=== PATIENT | male | born 1965 | race Caucasian/White ===

== ENCOUNTER → 2019-10-19 | Outpatient (CLI) | payer BC ==
[~2019-10-19] MED LIST: ABILIFY 2 MG2 M1 PO; DILTIAZEM 24HR240 M1 PO; HYDROCHLOROTHIA25 M1 PO; LEXAPRO 10 MG T10 M1 PO; LIPITOR40 MG PO; LISINOPRIL40 MG PO; MELOXICAM15 MG PO; MEN'S DAILY FO1 EAC1 PO; PREVACID30 MG PO; VALTREX 500 MG500 M1 PO
== END ==
LOC: SJCVCIMAG 15:25
DX: Z01.810 Encounter for preprocedural cardiovascular examination (principal); I08.8 Other rheumatic multiple valve diseases; I11.9 Hypertensive heart disease without heart failure; I44.7 Left bundle-branch block, unspecified; R94.31 Abnormal electrocardiogram [ECG] [EKG]; E78.00 Pure hypercholesterolemia, unspecified; Z79.899 Other long term (current) drug therapy; Z82.49 Family history of ischemic heart disease and other diseases of the circulatory system

== ENCOUNTER → 2019-10-22 | Outpatient (CLI) | payer BC | LOC: SJCVCIMAG 12:49 | DX: Z01.810 Encounter for preprocedural cardiovascular examination (principal); I45.10 Unspecified right bundle-branch block; I10 Essential (primary) hypertension; E78.5 Hyperlipidemia, unspecified; E66.9 Obesity, unspecified; Z79.899 Other long term (current) drug therapy ==

== ENCOUNTER 2019-10-24 10:16 | Day surgery (SDC) | payer BC ==
[2019-10-19 14:07] LABS: HEMOGLOBIN 15.3 gm/dL (14.0-18.0); MCH 31.7 pg (26.0-34.0); MCHC 34.7 g/dL (28.0-37.0); MCV 91.3 fL (80.0-100.0); RBC 4.82 mil/uL (4.50-6.00); RDW 13.5 % (10.5-14.5); URINE BILIRUBIN NEGATIVE (Negative); URINE BLOOD NEGATIVE (Negative); URINE CLARITY CLEAR; URINE GLUCOSE-RANDOM* NEGATIVE (Negative); URINE KETONES NEGATIVE (Negative); URINE LEUKOCYTES-REFLEX NEGATIVE (Negative); URINE NITRITE-REFLEX NEGATIVE (Negative); URINE PROTEIN (DIPSTICK) NEGATIVE (Negative); URINE UROBILINOGEN 0.2 E.U./dl (0.2-1.0); WBC 7.2 thou/uL (4.0-11.0)
--- NOTE | 2019-10-19 14:07 | EKG ---
[facility] [place] [address] ELECTROCARDIOGRAM REPORT Name: CRYSTAL WILSON Room #: PRE [facility] M..#: [id number] Admission: Attend Phys: Lb Sands MD Discharge: Date of : 63 Report #: [id number] THIS REPORT FOR: cc: Physician not on staff Physician not on staff Wade Muñiz MD ~ THIS REPORT FOR: //name// [facility] Test Date: 2019-10-19 Test Time: 14:00:38 Pat Name: CRYSTAL WILSON Department: Room: Gender: M Lpn Rn: CARMEN LUCAS : 1965 Requested By: Lb Sands Order Number: [id number] MD: Wade Muñiz Measurements Intervals Biggers Rate: 59 P: 12 VA: 222 QRS: -72 QRSD: 125 T: -5 QT: 417 QTc: 414 Interpretive Statements Sinus rhythm Prolonged VA interval Left bundle branch block No previous ECG available for comparison Electronically Signed On 10-19-2019 14:05:20 CDT by Wade Muñiz [email or web address] <ELECTRONICALLY SIGNED> By: Wade Muñiz MD 10/19/19 1405 1400 1400 Wade Muñiz MD /OLENA
[2019-10-19 14:09] LABS: URINE COLOR YELLOW
[2019-10-19 14:14] LABS: ALBUMIN 4.2 g/dL (3.4-5.0); CALCIUM 8.8 mg/dL (8.5-10.1)
[2019-10-19 14:18] LABS: PROTIME 10.2 Seconds (9.3-11.4)
[~2019-10-24] VITALS: Ht 188 cm; Wt 149.7 kg
[2019-10-24 11:27] VITALS: BP 137/74
[2019-10-24 18:45] VITALS: BP 129/69
[2019-10-24 19:30] VITALS: BP 160/90
[2019-10-25 04:08] VITALS: BP 133/75
[2019-10-25 06:01] LABS: HEMOGLOBIN 13.7 gm/dL (14.0-18.0); MCH 31.8 pg (26.0-34.0); MCHC 34.3 g/dL (28.0-37.0); MCV 92.6 fL (80.0-100.0); RBC 4.32 mil/uL (4.50-6.00); RDW 13.4 % (10.5-14.5); WBC 13.8 thou/uL (4.0-11.0)
--- NOTE | 2019-10-25 06:02 | NUR ---
RECIEVED CARE OF THIS PATIENT AT 1900. PATIENT ALERT AND ORIENTED X4. HAS NERISSA DRESSING ON L KNEE WITH CALDERON WRAPPED. HAS POLAR ICE ON WELL. HAS MARTÍN'S AND SCD'S. C/O PAIN AT A 2. SCHEDULED PAIN MED GIVEN. HAS GOOD FEELING AND MOVEMENT IN TOES. IV PATENT WITH FLUIDS INFUSING. SLEPT OFF AND ON DURING NIGHT.
[2019-10-25 07:20] VITALS: BP 128/63
--- NOTE | 2019-10-25 09:55 | NUR ---
ASSESSMENT: CM REVIEWED CHART AND SPOKE WITH PATIENT. PT IS S/P KNEE REPLACEMENT. PT REPORTS HE LIVES IN A HOUSE ALONE BUT STATES HE WILL HAVE HELP THERE FOR ABOUT A WEEK. PT REPORTS HAVING 2 STEPS TO ENTER THE HOME WITH NO HANDRAILS AND ABOUT 15 STEPS WITH HANDRAILS TO THE UPPER LEVEL. PT REPORTS FOR THE FIRST WEEK HE PLANS ON STAYING ON THE FIRST FLOOR. PHYSCIAL THERAPY SAW PATIENT AND RECOMMENDING A BARIATRIC WALKER. CM SPOKE WITH PT AND HE HAS NO PREFERENCE OF [employer]. CM NOTIFIED GABE AT [employer] AND SHE IS CHECKING INSURANCE. PT REPORTS THAT AN OUTPATIENT THERAPY CALLED HIM ALREADY HE JUST NEEDS TO CALL THEM BACK TO SCHEDULE THE APPT. PT REPORTS NO FURTHER NEEDS FROM CM.
[2019-10-25 13:07] VITALS: BP 128/63
--- NOTE | 2019-10-25 19:31 | NUR ---
VSS-AFEBRILE. OOB WITH PHYSICAL THERAPY, TOLERATED WELL, AND PT OK WITH DC. DISCUSSED ALL DISCHARGE INFORMATION, VERBALIZED UNDERSTANDING OF ALL DISCUSSED MATERIALS. LEFT UNIT IN WHEELCHAIR WITH ALL PERSONAL BELONGINGS. TRANSPORTED HOME IN PRIVATE VEHICLE WITH SIGNIFICANT OTHER.
--- NOTE | 2019-10-26 11:20 | O ---
[facility] [place] [place] [address] OPERATIVE REPORT Name: CRYSTAL WILSON Room #: DEP [facility] M.R.#: [id number] Admission: 10/24/19 Attend Phys: Lb Sands MD Discharge: 10/25/19 Date of : 63 Report #: [id number] THIS REPORT FOR: cc: Physician not on staff Physician not on staff Lb Sands MD ~ CC: BERNARD RORDIGUEZ Physician staff Lb Sands DATE OF SERVICE: 10/24/2019 PREOPERATIVE DIAGNOSES: 1. Left knee osteoarthritis. 2. Morbid obesity with a body mass index of 43. POSTOPERATIVE DIAGNOSES: 1. Left knee osteoarthritis. 2. Morbid obesity with a body mass index of 43. PROCEDURE: Left total knee arthroplasty using Navio robotic corporate law assistant. SURGEON: Lb Sands MD INDUSTRIAL RELATIONS ANALYST: Lawanda Collier PA-C. INDICATIONS FOR INDUSTRIAL RELATIONS ANALYST: Throughout the case, extensive retraction and manipulation of the knee was required. This was afforded to me by my corporate law assistant. ANESTHESIA: LMA with an adductor canal block. IMPLANTS: Case and Nephew size 7 Journey II BCS Oxinium femur, size 7 tibia, size 10 constrained polyethylene and size 35 patella. TOURNIQUET TIME: 63 minutes. ESTIMATED BLOOD LOSS: 25 mL. COMPLICATIONS: None. SPECIMENS: None. CONDITION UPON LEAVING THE OPERATING ROOM: Stable. INDICATIONS FOR PROCEDURE: The patient is a 53-year-old gentleman with left knee osteoarthritis. He had failed conservative measures for this and after [facility] [address] OPERATIVE REPORT Name: CRYSTAL WILSON Room #: DEP [facility] MSam#: [id number] Admission: 10/24/19 Attend Phys: Lb Sands MD Discharge: 10/25/19 Date of : 63 Report #: [id number] discussion with him, he elected for left total knee arthroplasty. DESCRIPTION OF PROCEDURE: Risks, benefits, alternatives, complications were discussed in detail with the patient including but not limited to risk of anesthesia, risk of damage to nerves, arteries, blood vessels, risk for infection, bleeding, risk for continued knee pain, need for reoperation. Informed consent was obtained from the patient. Left knee was appropriately marked in the preoperative holding area. IV Ancef was given for preoperative antibiotics. He was brought to the operating room and placed in supine position on operating room table. LMA anesthesia was induced without complication. Tourniquet was placed on the left thigh. Left lower extremity was prepped and draped in normal sterile fashion. Timeout was performed properly identifying the patient and procedure as well as the instrumentation and implants. All in the operating room were in agreement. Left lower extremity was exsanguinated, tourniquet was inflated. Tourniquet time was 63 minutes. Standard midline approach to the knee was made with 10 blade through the skin. Dissection was taken down sharply to the fascia and deep flaps were developed medially and laterally. Fresh 10 blade was used to make a medial parapatellar arthrotomy and the knee was inspected. There was severe medial compartment osteoarthritis with moderate lateral and patellofemoral osteoarthritis. It was decided to proceed with total knee arthroplasty. ACL and PCL were removed sharply. Reference pins were placed in the femur and the tibia. The knee was then digitally mapped using the [employer] robotic system. We sized the size 7 femur with a size 7 tibia and a 10 spacer. After acceptance of the intraoperative plan, the distal femoral cut was made with a Navio bur. Distal femoral cutting block was pinned in place and distal femoral cuts were made. Attention was turned to the tibia. Remainder of the menisci removed with Bovie cautery. Tibial resection guide was pinned in place using Navio for placement and tibial resection was made. Flexion and extension gaps were then checked and found to have good balance medially in flexion and extension with some moderate laxity laterally throughout flexion and extension, it was felt we could make up for this with a constrained implant. Tibia was sized, found to be a size 7. A size 7 tibial trial was placed, pinned and punched. A size 7 femoral trial was placed and box cut was made. This was then trialed with a size 10 constrained polyethylene. Knee was taken through range of motion, found to have a millimeter laxity medially and laterally throughout range of motion of the knee, both digitally as well as manually. A 9 mm was resected from the posterior surface of the patella and a size 35 patellar trial button was placed. Knee was taken through range of motion, found to be stable, found to have good patellar tracking. Trial components were removed. Bony ends were thoroughly irrigated with normal saline. Final size 7 tibia, size 7 Journey II BCS Oxinium femur and a size 35 patella were cemented in place using standard cementation techniques. While the cement cured, a periarticular injection consisting of morphine, ropivacaine, epinephrine and Toradol was placed around the knee joint capsule. After the cement cured, the tourniquet was deflated. Hemostasis was obtained with Bovie cautery. Final size 10 constrained polyethylene was placed. [place] [facility] of [address] [address] OPERATIVE REPORT Name: CRYSTAL WILSON Room #: DEP [facility] [place]#: [id number] Admission: 10/24/19 Attend Phys: Lb Sands MD Discharge: 10/25/19 Date of : 63 Report #: [id number] vancomycin was placed deep in the joint. Fascia was closed with 0 Vicryl, skin was closed with 2-0 Vicryl, skin staple. Soft dressing of a NERISSA dressing was applied. The patient tolerated this procedure well and went to recovery room under care of anesthesia postoperatively. <ELECTRONICALLY SIGNED> By: Lb Sands MD 10/26/19 1120 1734 1819 Lb Sands MD /nt
== END 2019-10-25 16:57 | disposition home or self-care (01) ==
LOC: OR 10:16 → 4S 18:34 → OR 10-25 16:57
PROVIDERS: Orthopaedic Surgery
DX: M17.12 Unilateral primary osteoarthritis, left knee (principal); E66.01 Morbid (severe) obesity due to excess calories; I10 Essential (primary) hypertension; E78.00 Pure hypercholesterolemia, unspecified; F41.9 Anxiety disorder, unspecified; G47.30 Sleep apnea, unspecified; Z98.890 Other specified postprocedural states; Z79.899 Other long term (current) drug therapy; Z11.59 Encounter for screening for other viral diseases; Z68.41 Body mass index [BMI] 40.0-44.9, adult
CPT/HCPCS: 10102; 50010; 50101; 50415; 50954; 51130; 51225; 51320; 51412; 52001; 52282; 53000; 53078; 55372; 56527; 56528; 57095; 57103; 57110; 57127; 57181; 62110; 62900; 70005

== ENCOUNTER → 2020-02-01 | Outpatient (CLI) | payer BC | LOC: LAB 08:58 | PROVIDERS: ATTEND Student in an Organized Health Care Education/Training Program | DX: Z01.812 Encounter for preprocedural laboratory examination (principal); Z20.828 Contact with and (suspected) exposure to other viral communicable diseases ==

== ENCOUNTER 2020-02-06 07:42 | Inpatient (IN) | payer BC ==
[2020-02-01 09:58] LABS: HEMATOCRIT 41.1 % (42.0-52.0); HEMOGLOBIN 14.3 gm/dL (14.0-18.0); MCH 31.1 pg (26.0-34.0); MCHC 34.9 g/dL (28.0-37.0); MCV 89.3 fL (80.0-100.0); RBC 4.6 mil/uL (4.50-6.00); RDW 14.5 % (10.5-14.5); WBC 6.2 thou/uL (4.0-11.0)
[2020-02-01 10:08] LABS: PROTIME 10.3 Seconds (9.3-11.4)
[2020-02-01 10:10] LABS: ALBUMIN 3.9 g/dL (3.4-5.0); CALCIUM 8.9 mg/dL (8.5-10.1); CREATININE 0.9 mg/dL (0.7-1.3); POTASSIUM 4.2 mmol/L (3.5-5.1)
[2020-02-01 10:13] LABS: URINE BILIRUBIN NEGATIVE (Negative); URINE BLOOD NEGATIVE (Negative); URINE CLARITY CLEAR; URINE COLOR YELLOW; URINE GLUCOSE-RANDOM* NEGATIVE (Negative); URINE KETONES NEGATIVE (Negative); URINE LEUKOCYTES-REFLEX NEGATIVE (Negative); URINE NITRITE-REFLEX NEGATIVE (Negative); URINE PROTEIN (DIPSTICK) NEGATIVE (Negative); URINE SPECIFIC GRAVITY >= 1.030 (1.005-1.035); URINE UROBILINOGEN 0.2 E.U./dl (0.2-1.0)
[~2020-02-06] VITALS: Ht 188 cm; Wt 140.6 kg
--- NOTE | ~2020-02-06 | O ---
[facility] [place] [address] OPERATIVE REPORT Name: CRYSTAL WILSON Room #: 150-5 ADM IN M.R.#: [id number] Admission: 02/06/20 Attend Phys: Lb Sands MD Discharge: Date of : 63 Report #: [id number] THIS REPORT FOR: cc: JOHN RODRIGUEZ Physician not on staff Lb Sands MD ~ CC: Physician staff JOHN Sands DATE OF SERVICE: 02/06/2020 PREOPERATIVE DIAGNOSIS: Right knee osteoarthritis. POSTOPERATIVE DIAGNOSIS: Right knee osteoarthritis. PROCEDURE: Right total knee arthroplasty using Navio robotic housing assistant. SURGEON: Lb Sands MD. COLOR WORKER: Lawanda Collier PA-C. INDICATIONS FOR COLOR WORKER: Throughout the case, extensive retraction and manipulation of the knee was required. This was afforded to me by my housing assistant. ANESTHESIA: LMA with an adductor canal block. IMPLANTS: Case and Nephew size 7 Journey II BCS Oxinium femur, size 6 tibia, size 11 polyethylene and size 35 patella. TOURNIQUET TIME: 55 minutes. ESTIMATED BLOOD LOSS: 25 mL. COMPLICATIONS: None. SPECIMENS: None. CONDITION UPON LEAVING THE OPERATING ROOM: Stable. INDICATIONS FOR PROCEDURE: The patient is a 54-year-old gentleman with right knee osteoarthritis. He had failed conservative measures for this and after discussion with him, he elected for right total knee arthroplasty. DESCRIPTION OF PROCEDURE: Risks, benefits, alternatives, complications were discussed in detail with the patient including but not limited to risk of [facility] [address] [place] [address] OPERATIVE REPORT Name: CRYSTAL WILSON Room #: 150-5 ADM IN M.R.#: [id number] Admission: 02/06/20 Attend Phys: Lb Sands MD Discharge: Date of : 63 Report #: [id number] anesthesia, risk of damage to nerves, arteries, blood vessels, risk for infection, bleeding, risk for continued knee pain, need for reoperation. Informed consent was obtained from the patient. Right knee was appropriately marked in the preoperative holding area. IV Ancef was given for preoperative antibiotics. Adductor canal block was placed by Anesthesia. He was brought to the operating room and placed in supine position on operating room table. LMA anesthesia was induced without complication. Tourniquet was placed on the right thigh. Right lower extremity was prepped and draped in normal sterile fashion. Timeout was performed properly identifying the patient and procedure as well as the instrumentation and implants. All in the operating room were in agreement. Right lower extremity was exsanguinated, tourniquet was inflated. Tourniquet time was 55 minutes. Standard midline approach to the knee was made with 10 blade through the skin. Dissection was taken down sharply to the fascia and deep flaps were developed medially and laterally. Fresh 10 blade was used to make a medial parapatellar arthrotomy and the knee was inspected. There was severe tricompartmental osteoarthritis. ACL and PCL were removed. Reference pins were placed in the femur and the tibia and the knee was then digitally mapped using the [employer] robotic system. Intraoperative plan was made and we sized the size 7 femur with a size 6 tibia and a 10 spacer. After acceptance of the intraoperative plan, the distal femoral cut was made with a Navio bur. Distal femoral cutting block was pinned in place and the chamfer cuts were made. Attention was then turned to the tibia. Remainder of the menisci removed with Bovie cautery. Tibial resection guide was pinned in place using the Navio for placement and tibial resection was made. Flexion and extension gaps were then checked and found to be tight medially and in extension. A limited medial release was performed using the pie crust technique and this balanced the knee well. After this, tibia was sized, found to be a size 6. A size 6 tibial trial was placed, pinned and punched. A size 7 femoral trial was placed and box cut was made. This was then trialed with a size 11 polyethylene. Size 11 polyethylene demonstrated 1-2 millimeter of laxity medially and laterally throughout range of motion of the knee. A 9 mm was resected from the posterior surface of the patella and a size 35 patellar trial button was placed. Knee was taken through range of motion, found to be stable, found to have good patellar tracking. Trial components were removed. Bony ends were thoroughly irrigated with normal saline. Final size 6 tibia, size 7 Journey II BCS Oxinium femur and a size 35 patella were cemented in place using standard cementation techniques. While the cement cured, a periarticular injection consisting of morphine, ropivacaine, epinephrine and Toradol was placed around the knee joint capsule. After the cement cured, the tourniquet was deflated and hemostasis was obtained with Bovie cautery. Final size 11 polyethylene was placed. A gram of vancomycin was placed deep in the joint. Fascia was closed with 0 Vicryl, skin was closed with 2-0 Vicryl, skin staple and a NERISSA dressing was applied. The [address] [address] OPERATIVE REPORT Name: CRYSTAL WILSON RINA Room #: 150-5 [facility] IN M.R.#: [id number] Admission: 02/06/20 Attend Phys: Lb Sands MD Discharge: Date of : 63 Report #: [id number] patient tolerated this procedure well and went to recovery room under care of Anesthesia postoperatively. By: 1635 1652 Lb Sands MD /nt
[2020-02-06 13:31] VITALS: BP 135/77
[2020-02-06 18:00] VITALS: BP 128/56
[2020-02-06 18:30] VITALS: BP 149/71
--- NOTE | 2020-02-06 18:41 | NUR ---
Pt arrived on the unit, VSS, NO C/O PAIN AT THIS TIME. PT HAS GOOD APPETITE, NO N/V NOTED. NURSE EDUCATED SOLUTIONS SPECIALIST LIGHT USE, BED LOW TO GROUND. FALL PRECAUTIONS IN PLACE. IV PATENT ON R FOREARM. WILL CONTINUE TO MONITOR.
[2020-02-06 19:38] VITALS: BP 148/51
[2020-02-06 23:09] VITALS: BP 121/62
--- NOTE | 2020-02-07 03:58 | NUR ---
ASSESSED AT START OF SHIFT PT A&OX4. IV INTACT AND FLUIDS INFUSING. PAIN MED GIVEN. NERISSA DRESSING IN PLACE. URINAL AT BEDSIDE. PT WEARS CPAP AT NIGHT. SCD'S, TEDHOSE ON BLE. FALL PREC IN PLACE AND CALL LIGHT IN REACH WILL CONT TO MONITOR
[2020-02-07 05:24] VITALS: BP 135/67
[2020-02-07 05:52] LABS: HEMATOCRIT 39.2 % (42.0-52.0); HEMOGLOBIN 13.2 gm/dL (14.0-18.0); MCH 30.3 pg (26.0-34.0); MCHC 33.6 g/dL (28.0-37.0); MCV 90.3 fL (80.0-100.0); RBC 4.34 mil/uL (4.50-6.00); RDW 14.2 % (10.5-14.5); WBC 14.3 thou/uL (4.0-11.0)
[2020-02-07 07:48] VITALS: BP 123/60
--- NOTE | 2020-02-07 12:01 | NUR ---
CM COMPLETED INITIAL ASSESSMENT TO DISCUSS D/C PLANNING. PT A&OX4. PT SITTING IN CHAIR UPON ARRIVAL. PT LIVES AT HOME ALONE. PT STATES, "MY KIDS COME OVER SOMETIMES." PT HAS CPAP MACHINE. AND A WALKER HE WILL USE. PT HAD LEFT KNEE OPERATED ON IN THE PAST AND USED OUTPATIENT THERAPY, PLANS TO USE OUTPATIENT AGAIN AT D/C. PT STATES THERAPY HAS BEEN SET UP FOR THE NEXT 2 WEEKS. PT HAS NO HX W/SNF OR HH. PT STATED HE HAS COMMUNITY SUPPORT NETWORK. CM TO CONT TO FOLLOW TO ASSIST NEEDED.
--- NOTE | 2020-02-07 13:52 | NUR ---
PT CARE ASSUMED AT 0700.A&Ox4. PT PASSED PT EVALUATION AND IS GOOD TO DISCAHRGE TO HOME. IV PATENT WITH NO REDNESS OR EDEMA. SALINE LOCKED. SCD'S AND MARTÍN HOSES IN PLACE. DISCHARGE GIVEN WITH NO FURTHER QUESTIONS FROM PATIENT. NERISSA DRESSING AND POLAR PACK IN PLACE. PT USES URINAL. CALL LIGHT IN REACH. WILL CONTINUE TO MONITOR.
[2020-02-07 14:29] VITALS: BP 123/60
--- NOTE | 2020-02-07 14:36 | NUR ---
PT IS AOX4, VSS, PAIN CONTROLLED WITH ORAL ANALGESIC. PT UP WITH WALKER AND GAIT BELT. PT RECEIVED DISCHARGE INSTRUCTIONS, VERBALIZED UNDERSTANDING. BELONGINGS PACKED AND SENT HOME WITH PATIENT. PT TRANSPORTED OUT BY WC.TO CAR. IV D/C'D.
== END 2020-02-07 16:29 | disposition home or self-care (01) | DRG 470 ==
LOC: PRE 07:42 → TBA 12:46 → PRE 13:12 → 4S 17:04
PROVIDERS: ADMIT Orthopaedic Surgery; ATTEND Orthopaedic Surgery
PROC: 0SRC069 Replacement of Right Knee Joint with Oxidized Zirconium on Polyethylene Synthetic Substitute, Cemented, Open Approach (ICD-10-PCS; principal; 2020-02-06)
PROC: 8E0Y0CZ Robotic Assisted Procedure of Lower Extremity, Open Approach (ICD-10-PCS; principal; 2020-02-06)
PROC: 5A09357 Assistance with Respiratory Ventilation, Less than 24 Consecutive Hours, Continuous Positive Airway Pressure (ICD-10-PCS; 2020-02-07)
DX: M17.11 Unilateral primary osteoarthritis, right knee (principal); Z79.899 Other long term (current) drug therapy
CPT/HCPCS: 10102; 50010; 50101; 50415; 50954; 51130; 51225; 51320; 51412; 52001; 52282; 53000; 53078; 53365; 56527; 56528; 57095; 57103; 57110; 57127; 57181; 62110; 62900; 64043; 65060; 70005

== ENCOUNTER → 2020-08-21 | Outpatient (CLI) | payer BC ==
[~2020-08-21] MED LIST changes: +NORCO5 PO
== END ==
LOC: LAB 07:47
PROVIDERS: ATTEND Orthopaedic Surgery
DX: Z01.812 Encounter for preprocedural laboratory examination (principal); Z20.822 Contact with and (suspected) exposure to COVID-19

== ENCOUNTER 2020-08-26 07:17 | Day surgery (SDC) | payer BC ==
[~2020-08-26] VITALS: Ht 188 cm; Wt 144.2 kg
--- NOTE | ~2020-08-26 | O ---
[facility] [place] [address] OPERATIVE REPORT Name: CRYSTAL WILSON Room #: 150-3 [facility] M.R.#: [id number] Admission: 08/26/20 Attend Phys: Lb Sands MD Discharge: Date of : 63 Report #: [id number] THIS REPORT FOR: cc: FAM - No family physician/PCP FAM - No family physician/PCP Lb Sands MD ~ DATE OF SERVICE: 08/26/2020 PREOPERATIVE DIAGNOSES: Right total knee arthroplasty, patellar instability. POSTOPERATIVE DIAGNOSES: Right total knee arthroplasty, patellar instability. PROCEDURE: 1. Open medial retinacular repair, right knee with advancement of the vastus medialis obliquus. 2. Open lateral release. SURGEON: Lb Sands MD. CLIMATE CHANGE RISK ASSESSOR: Lawanda Collier PA-C. INDICATIONS FOR CLIMATE CHANGE RISK ASSESSOR: Throughout the case, extensive retraction and manipulation of the knee was required. This was afforded to me by my processing assistant. ANESTHESIA: LMA. TOURNIQUET TIME: 14 minutes. ESTIMATED BLOOD LOSS: 25 mL. COMPLICATIONS: None. SPECIMENS: None. CONDITION UPON LEAVING THE OPERATING ROOM: Stable. INDICATIONS FOR PROCEDURE: The patient is a 54-year-old gentleman who is about 6 months out from a right total knee arthroplasty, initially has done well with this; however, over the past 3-4 weeks, he has noted recurrent lateral subluxation and dislocation of his patella. 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 DESCRIPTION OF PROCEDURE: Risks, benefits, alternatives, complications were discussed in detail with the patient including but not limited to risk of [facility] [address] [place] [address] OPERATIVE REPORT Name: CRYSTAL WILSON RINA Room #: 150-3 [facility] Nixon.#: [id number] Admission: 08/26/20 Attend Phys: Lb Sands MD Discharge: Date of : 63 Report #: [id number] anesthesia, risk of damage to nerves, arteries, blood vessels, risk for infection, bleeding, risk for continued knee pain, recurrent instability and need for reoperation. Informed consent was obtained from the patient. Right knee was appropriately marked in the preoperative holding area. IV Ancef was given for preoperative antibiotics. He was brought to the operating room and placed in supine position on operating room table. LMA anesthesia was induced without complication. Tourniquet was placed on the right thigh. Right lower extremity was prepped and draped in normal sterile fashion. Timeout was performed properly identifying the patient and procedure as well as the instrumentation and implants. All in the operating room were in agreement. Right lower extremity was exsanguinated, tourniquet was inflated. Tourniquet time was 14 minutes. Previous scar was used and this was opened with a 10 blade through the skin. Dissection was taken down sharply to the fascia and deep flaps were developed medially and laterally. Fascia was dissected out to the VMO to verify we were at the correct depth and it appeared that the medial retinacular tissues were stretched out and insufficient. Medial parapatellar arthrotomy was made and the knee was inspected. Arthroplasty appeared to be intact. A cuff of tissue was removed from the medial retinaculum approximately 15 mm in width. It was verified that during this would advance the VMO as well as tighten up the medial tissues. After this, a limited lateral release was performed with Bovie cautery. The tourniquet was deflated. Hemostasis obtained. Medial retinaculum was then repaired with interrupted 0 Vicryl and then a running 0 Ethibond suture in order to reinforce the repair. After this patellar tracking was assessed and found to have good patellar tracking with no subluxation laterally of the patella. The skin was closed with 2-0 Vicryl, skin staple and a NERISSA dressing and a controlled motion brace locked in extension was applied. The patient tolerated this procedure well and went to recovery room under care of anesthesia postoperatively. By: [id number] Lb Sands MD /imtiaz
[~2020-08-26 07:17] MED LIST changes: -NORCO5 PO
[2020-08-26 08:18] VITALS: BP 132/70
[2020-08-26] MEDS ORDERED: NORCO5 PO (10:51)
[2020-08-26 10:59] VITALS: BP 132/70
== END 2020-08-26 12:30 | disposition home or self-care (01) ==
LOC: OR 07:17 → TBA 07:17 → EDSTATUS 09:09 → PRE 09:10 → OR 09:15 → PRE 09:17 → OR 09:25 → EDSTATUS 09:27 → OR 12:10 → PRE 15:22 → OR 15:41
PROVIDERS: ATTEND Orthopaedic Surgery
DX: M25.561 Pain in right knee (principal); M22.01 Recurrent dislocation of patella, right knee; I10 Essential (primary) hypertension; E78.00 Pure hypercholesterolemia, unspecified; F32.9 Major depressive disorder, single episode, unspecified; G47.30 Sleep apnea, unspecified; K21.9 Gastro-esophageal reflux disease without esophagitis; Z96.653 Presence of artificial knee joint, bilateral; Z98.890 Other specified postprocedural states; Z79.899 Other long term (current) drug therapy
CPT/HCPCS: 50010; 50101; 50415; 50954; 51412; 53078; 53337; 56524; 56528; 57095; 57103; 57116; 57180; 62110; 62900; 70005

== ENCOUNTER → 2021-04-03 | Outpatient (CLI) | payer BC ==
[~2021-04-03] MED LIST changes: +GINKGO60 MG PO; +MELATONIN5 M5 PO; +NORCO5 PO
[2021-04-03 09:54] LABS: HEMATOCRIT 44.4 % (42.0-52.0); HEMOGLOBIN 14.9 gm/dL (14.0-18.0); MCH 30.6 pg (26.0-34.0); MCHC 33.5 g/dL (28.0-37.0); MCV 91.3 fL (80.0-100.0); RBC 4.86 mil/uL (4.50-6.00); RDW 13.3 % (10.5-14.5); WBC 6.7 thou/uL (4.0-11.0)
[2021-04-03 09:57] LABS: POTASSIUM 3.9 mmol/L (3.5-5.1)
[2021-04-03 10:07] LABS: PROTIME 10.9 Seconds (10.5-12.1)
[2021-04-03 10:14] LABS: URINE BILIRUBIN NEGATIVE (Negative); URINE BLOOD NEGATIVE (Negative); URINE CLARITY CLEAR; URINE COLOR YELLOW; URINE GLUCOSE-RANDOM* NEGATIVE (Negative); URINE KETONES NEGATIVE (Negative); URINE LEUKOCYTES-REFLEX NEGATIVE (Negative); URINE NITRITE-REFLEX NEGATIVE (Negative); URINE PROTEIN (DIPSTICK) NEGATIVE (Negative); URINE SPECIFIC GRAVITY >= 1.030 (1.005-1.035); URINE UROBILINOGEN 0.2 E.U./dl (0.2-1.0)
--- NOTE | 2021-04-04 07:04 | EKG ---
[place] [address] [address] [facility] [place] [address] ELECTROCARDIOGRAM REPORT Name: STEVECRYSTAL FLYNN Room #: [facility]#: [id number] Admission: 04/03/21 Attend Phys: Magnus Croft MD Discharge: Date of : 63 Report #: [id number] [facility] Test Date: 2021-04-03 Test Time: 09:04:57 Pat Name: CRYSTAL WILSON Department: Room: Gender: Orthopedic Podiatrist: Shawna Olmstead : 1965 Requested By: Magnus Croft Order Number: [id number] MD: Sloan Alberto Measurements Intervals Rogers Rate: 66 P: 40 ME: 188 QRS: -75 QRSD: 125 T: 10 QT: 407 QTc: 427 Interpretive Statements Sinus rhythm Nonspecific IVCD with LAD Compared to ECG 10/19/2019 14:00:38 Intraventricular conduction delay now present First degree AV block no longer present Left bundle-branch block no longer present Electronically Signed On 04-04-2021 7:03:58 CATARACT LENS GENERATOR by Sloan Alberto [email or web address] <ELECTRONICALLY SIGNED> By: Sloan Alberto MD, [facility] 11/702 3 3 Sloan Alberto MD, [facility] /EPI
== END ==
LOC: PAC 08:17
PROVIDERS: ATTEND Orthopaedic Surgery Sports Medicine
DX: S83.011A Lateral subluxation of right patella, initial encounter (principal); M25.561 Pain in right knee; M23.51 Chronic instability of knee, right knee; Z96.651 Presence of right artificial knee joint; X58.XXXA Exposure to other specified factors, initial encounter; Y92.89 Other specified places as the place of occurrence of the external cause; Y93.89 Activity, other specified; Y99.8 Other external cause status

== ENCOUNTER 2021-04-07 09:31 | Observation (INO) | payer BC ==
[~2021-04-07] VITALS: Ht 188 cm; Wt 147.4 kg
[2021-04-07 10:58] VITALS: BP 135/60
[2021-04-07 17:00] VITALS: BP 152/79
[2021-04-07 17:16] VITALS: BP 165/93
[2021-04-07 19:54] VITALS: BP 159/85
--- NOTE | 2021-04-08 01:19 | NUR ---
ASSESSED AT START OF SHIFT. PT RESTING IN BED. EVENING MEDS GIVEN AND PT JOHANN IT WELL. IV INTACT AND FLUIDS INFUSING. POLAR PACK, NERISSA DRESSING INTACT. PT VOIDS VIA URINAL. FALL PREC IN PLACE AND CALL LIGHT AT REACH WILL CONT TO MONITOR.
[2021-04-08 02:48] VITALS: BP 122/67
[2021-04-08 03:14] LABS: ABSOLUTE NEUTROPHILS 8.7 thou/uL (1.4-8.2); BASOPHILS 0.1 % (0.0-2.0); HEMATOCRIT 38.2 % (42.0-52.0); HEMOGLOBIN 13.1 gm/dL (14.0-18.0); MCH 31.4 pg (26.0-34.0); MCHC 34.2 g/dL (28.0-37.0); MCV 91.8 fL (80.0-100.0); MONOCYTES 5.1 % (1.0-8.0); PLATELET COUNT 199 thou/uL (150-400); POLYS 86.8 % (36.0-66.0); RBC 4.16 mil/uL (4.50-6.00); RDW 13.6 % (10.5-14.5)
[2021-04-08 03:39] LABS: CALCIUM 8.3 mg/dL (8.5-10.1); CREATININE 1.2 mg/dL (0.7-1.3); MAGNESIUM 1.8 mg/dL (1.8-2.4); POTASSIUM 4.2 mmol/L (3.5-5.1)
[2021-04-08 05:35] VITALS: BP 130/60
--- NOTE | 2021-04-08 07:34 | O ---
[address] [address] OPERATIVE REPORT Name: CRYSTAL WILSON Room #: 436-P [facility]..#: [id number] Admission: 04/07/21 Attend Phys: Magnus Croft MD Discharge: Date of : 63 Report #: [id number] THIS REPORT FOR: cc: FAM - No family physician/PCP FAM - No family physician/PCP Magnus Croft MD ~ DATE OF SERVICE: 04/07/2021 SERVICE: Orthopedics. FACILITY: [facility]. SURGEON: Magnus Croft MD GLAZING SUPERINTENDENT: Shwetha Daily. INDICATIONS FOR GLAZING SUPERINTENDENT: Assistance with exposure, retraction, graft preparation, internal fixation and closure. PREOPERATIVE DIAGNOSES: 1. Right knee patellar instability. 2. Right knee medial patellofemoral ligament insufficiency. 3. Right knee lateral patellar maltracking. 4. Status post right total knee arthroplasty. POSTOPERATIVE DIAGNOSES: 1. Right knee patellar instability. 2. Right knee medial patellofemoral ligament insufficiency. 3. Right knee lateral patellar maltracking. 4. Status post right total knee arthroplasty. PROCEDURES: 1. Right knee revision of total knee poly spacer. 2. Right knee medializing tibial tubercle osteotomy. 3. Right knee medial patellofemoral ligament reconstruction. 4. Right knee open lateral release. COMPLICATIONS: None. DRAINS: None. SPECIMENS: 1. Aerobic and anaerobic culture swabs. 2. Deep tissue for permanent. ESTIMATED BLOOD LOSS: 150 mL. [address] [place] [address] OPERATIVE REPORT Name: CRYSTAL WILSON [id number] Admission: 04/07/21 Attend Phys: Magnus Croft MD Discharge: Date of : 63 Report #: [id number] FINDINGS: 1. Case and Nephew 4.7 mm osteopenia screws x 3 with steel cerclage cable x 1. 2. MPFL reconstruction with semitendinosus allograft and Arthrex TightRope femoral fixation and 3.0 mm knotless SutureTak anchor x 2 on the patella. 3. Exchange of 11 mm standard poly insert to 13 mm constrained poly with improved flexion stability. 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 He had an uneventful surgery initially, but developed worsening medial instability of his patella with lateral tracking and tamiko instability and dislocation. He initially was treated with trial of a medial retinacular tightening and imbrication, but he continued to have patellar instability, so he was referred for definitive treatment. We obtained imaging, the CT scan showed that the femur and tibia were in good position without signs of loosening or component malposition. His tibial tubercle appeared to be in a position where it would benefit from medialization to unload the medial patellofemoral ligament reconstruction with the realignment procedure. Risks, benefits, alternatives and indications for surgery were discussed with him in detail preoperatively and he gave full informed consent and wished to move forward with definitive surgical treatment. Risks include but not limited to pain, bleeding, infection, malunion, nonunion, injury to nerves or blood vessels, need for further surgery including revision as well as complications related to anesthesia. Despite the risks, he wished to proceed should. DESCRIPTION OF PROCEDURE: After right lower extremity was correctly identified in the preoperative holding area as the operative extremity, the patient underwent regional nerve block. He was then taken to the operating room where general anesthesia was induced without complications. He was padded appropriately. Prophylactic antibiotics were administered at appropriate time. Tourniquet was applied to right leg. Right lower extremity was then prepped and draped in standard sterile fashion. Timeout procedure performed. Esmarch was used, tourniquet inflated to 300 mmHg. Total tourniquet time was 132 minutes. A standard anterior approach to the knee was made utilizing the previous scar and full thickness skin flaps were developed and then a medial parapatellar arthrotomy was performed. He had gross patellar instability and at rest, the kneecap was in a dislocated position and there was a palpable weakening of the medial tissues, although the tissue substance itself was sufficient. There was an effusion present, so we took a culture swab and then later took a deep tissue specimen to ensure that there was no evidence of any occult infection. I mobilized the patella, dissecting soft tissue, which was hypertrophic off the backside of the patella where some of it had actually overgrown the medial facet of the patellar component and then also debrided behind the patellar tendon, [address] [address] OPERATIVE REPORT Name: CRYSTAL WILSON Room #: 436-P [facility] Imani OspinaRLawrence#: [id number] Admission: 04/07/21 Attend Phys: Magnus Croft MD Discharge: Date of : 63 Report #: [id number] preserving the tendon itself and resected soft tissues to allow access to the joint and mobilization of the patella into the more appropriately medialized anatomic position. The tibial component was evaluated. He appeared to have some instability in flexion, both medially and laterally and I felt that upsizing the polyethylene insert will actually be beneficial as patellar instability can have a relationship to flexion laxity and I think may have participated in this particular case, so we removed the 11 poly, placed both 12 and 13 constrained trial and assessed. I was happy with the stability with a 13 constrained and so we made that selection as our final poly, but left the trial in until the end. I then took the dissection distally exposing the tibial tubercle, dissected the anterior compartment musculature off the lateral aspect of the tibia and then used the microsagittal saw to cut a transverse osteotomy leaving a distal hinge intact, although ultimately to mobilize adequately this was released. A 2 mm drill was then used to drill a tunnel deep to the osteotomy for placement of a cerclage cable around the tubercle in the osteotomy. Cross-table lateral was used for all front to back screw fixation of the tibial tubercle. I then prepared the femoral aspect for the ligament reconstruction. Using a cross table lateral, identified the Schottle point on the medial femur and then drilled a guide pin across the femur, exiting laterally and then overreamed to a 6 x 25 mm socket and then we seated the allograft semitendinosis, which was prepared in a Y fashion with the TightRope placed at the apex of the graft folded over and passed it into the femur setting the Arthrex TightRope button on the lateral cortex of the femur and then tensioning the TightRope accordingly ensuring that there was adequate graft length to pass through to the patella. I then proceeded with the osteotomy fixation. The osteotomy was medialized approximately 9.5 mm, which was confirmed with a ruler measurement and then we fixed the osteotomy with 2 K-wires and then passed the cable between the 2 K-wires and tensioned the cable accordingly providing good compression across the osteotomy. I then placed the first 2 of the 3 Case and Nephew 4.7 mm osteopenic small fragment screws in a divergent fashion above and below the cable and these achieved excellent fixation. After these were then tightened, I then re-tensioned the cable and assessed with x-ray again and felt that additional fixation would be beneficial as there was plenty of room in the osteotomy for third screw with all screws placed in a fashion to avoid the tibial component. A third screw was then placed across the bladder was used throughout to ensure no overpenetration and therefore no injury to the posterior vital structures. Good fixation was achieved with the third screw. Bone graft was then applied with the autograft bone from the drilling and osteotomy as well as allograft Arthrex bone graft along the osteotomy. [address] [address] OPERATIVE REPORT Name: STEVECRYSTAL RINA Room #: 436-P [facility] Jayme#: [id number] Admission: 04/07/21 Attend Phys: Magnus Croft MD Discharge: Date of : 63 Report #: [id number] I then proceeded with placement of two 3.0 mm knotless suture tacks in the patella, drilled dorsal to the patellar component with one placed at the 12 o'clock position and one at the 3 o'clock position on the standardized clock face. The sutures had been reloaded such that one suture was used as a shuttling suture and the other as a cerclage fixation. The graft limbs were passed under each respectively. The patella was confirmed to be reduced and then the sutures were pulled securely upon the graft and tied back upon themselves for reinforced fixation on the patella. Appropriate tension was achieved. Then, I used a free needle to reinforce the graft fixation with a #2 suture and then we assessed the resection at this point. The patella was well stable and tracked in the trochlear groove, it can be both confirmed visually and on digital palpation. Prior to definitive fixation of the MPFL allograft reconstruction, the tibial trial was removed and the 13 mm constrained poly was snapped into position after the knee was irrigated and debrided one final time. Final x-rays were taken and then the arthrotomy was closed with 0 Vicryl suture in [id number] fashion. The skin was closed with 2-0 Vicryl followed by running subcuticular 3-0 Monocryl and Dermabond. Sterile dressing was applied followed by a compression hose, PolarCare and knee immobilizer. The patient was awakened from anesthesia and taken to recovery room in stable condition. There were no complications. All counts were reported as correct. <ELECTRONICALLY SIGNED> By: Magnus Croft MD 04/08/21 0734 [id number] 1723 Magnus Croft MD /nt
[2021-04-08 07:35] VITALS: BP 113/62
--- NOTE | 2021-04-08 09:39 | NUR ---
ASSUMED PT CARE THIS AM. PT IS ALERT & ORIENTED X4. PT HAS IV SITE ON RAC SALINE LOCKED. PT USES URINAL. ORDERED KNEE IMMOBILIZER BRACE THIS AM. PT HAS [employer], [employer], SCD AND POLAR CARE. PT IS ON ROOM AIR DURING DAY AND USES 2L AT NIGHT. PT TOLERATED DIET AND MEDICATION WELL THIS AM. PT AT THE BEDSIDE. WILL CONTINUE TO MONITOR PT. FOLLOW POC.
[2021-04-08 11:02] VITALS: BP 113/62
--- NOTE | 2021-04-08 11:24 | NUR ---
Chart reviewed and discussed with the care team. Pt cleared for dc home today. He has a rwalker at home and therapy has issued him crutches. He is s/p TKR and will be nwb for 6 wks. Outpt therapy anticipated. No cm interventions indicated.
[2021-04-08 11:29] VITALS: BP 113/62
[2021-04-09 04:11] LABS: GLYCOHEMOGLOBIN (HGB A1C) 6.1 % (4.8-5.6)
--- NOTE | 2021-04-10 12:07 | PATH ---
[facility] [address] [place] [address] PATHOLOGY RPT PROCEDURE Name: CRYSTAL WILSON RINA Room #: 436-P [facility] Delacruz#: [id number] Admission: 04/07/21 Date of : 63 Discharge: 04/08/21 Report #: [id number] Path Case #: [id number] [facility] Accession Number: [id number] . 01 Material submitted: . knee - RIGHT TOTAL KNEE SYNOVIUM. Modifiers: right . 01 Clinical history: . RIGHT KNEE PAIN, HX OF RIGHT TOTAL KNEE ARTHROPLASTY, LATERAL SUBLUXATION RIGHT PATELLA, CHRONIC INSTABILITY OF RIGHT KNEE . 02 Diagnosis: Right total knee synovium, excision: - Synovium tissue with chronic synovitis, foreign body giant cell reaction and degenerative changes. - Negative for pigmented villonodular synovitis or malignancy. (ANK:mauri; 04/09/2021) QMS 04/09/2021 1311 Local . 02 Electronically signed: . Micheline Ray MD, Pathologist NPI- [id number] . 01 Gross description: . The specimen is received in formalin, labeled "Crystal Wilson, right total knee synovium" and consists of a white to pale yellow rubbery irregular portion of connective tissue (3.3 x 1.3 x 0.5 cm). Sectioning reveals ball to pale yellow homogenous and glistening cut surfaces. The specimen is entirely submitted in A1.(DOUGLAS; 04/08/2021) DKA/DKA 04/08/2021 1051 Local . 02 Pathologist provided ICD-10: M65.9 . 02 CPT . 796378 Specimen Comment: A courtesy copy of this report has been sent to [phone] Specimen Comment: Report sent to Specimen Comment: A duplicate report has been generated due to demographic updates. Performed at: [address] [id number] MD Luis Miguel Ruiz MD Phone: [phone] Performed at: [address] [id number] [address] [address] PATHOLOGY RPT PROCEDURE Name: CRYSTAL WILSON Room #: 436-P [facility] M.R.#: [id number] Admission: 04/07/21 Date of : 63 Discharge: 04/08/21 Report #: [id number] Path Case #: [id number] MD June Newman [place] Phone: [phone]
== END 2021-04-08 11:34 | disposition home or self-care (01) ==
LOC: OR 09:31 → TBA 09:35 → OR 09:59 → 4S 16:29
PROVIDERS: Hospitalist; Nurse Practitioner; ADMIT Orthopaedic Surgery Sports Medicine; ATTEND Orthopaedic Surgery Sports Medicine
DX: M25.361 Other instability, right knee (principal); Z20.822 Contact with and (suspected) exposure to COVID-19; I10 Essential (primary) hypertension; E78.5 Hyperlipidemia, unspecified; G47.30 Sleep apnea, unspecified; F41.9 Anxiety disorder, unspecified; K21.9 Gastro-esophageal reflux disease without esophagitis; F32.9 Major depressive disorder, single episode, unspecified; E66.9 Obesity, unspecified; Z68.41 Body mass index [BMI] 40.0-44.9, adult; Z96.651 Presence of right artificial knee joint; Z79.899 Other long term (current) drug therapy
CPT/HCPCS: 50010; 50101; 50415; 50951; 50954; 51320; 52001; 53078; 54118; 56524; 56527; 56528; 56530; 57095; 57103; 57116; 57181; 58129; 58132; 58133; 58552; 58597; 58686; 58687; 58946; 58947; 58997; 59071; 59072; 59073; 59074; 59075; 62110; 62900; 70005